=== PATIENT | male | born 2000 | race African-American/Black ===

== ENCOUNTER 2022-02-08 07:42 | Emergency (ER) | payer OTHER ==
[~2022-02-08] VITALS: Ht 182.9 cm; Wt 122.5 kg
[2022-02-08] MEDS ORDERED: MIRTAZAPINE15 MG PO (08:04)
== END 2022-02-08 08:15 | disposition home or self-care (01) ==
LOC: ED 07:42
DX: S01.112A Laceration without foreign body of left eyelid and periocular area, initial encounter (principal); Z79.899 Other long term (current) drug therapy; X58.XXXA Exposure to other specified factors, initial encounter
CPT/HCPCS: 12011; 99283-25